=== PATIENT | female | born 1970 | race Caucasian/White ===

== ENCOUNTER → 2023-08-13 08:27 | Outpatient (REF) | payer OTHER, SELFPAY | LOC: EMG 08:27 | PROVIDERS: ATTENDING PHYSICIAN Nurse Practitioner | DX: R20.0 Anesthesia of skin (principal) | CPT/HCPCS: 95886; 95911 ==

== ENCOUNTER → 2023-08-16 07:46 | Outpatient (REF) | payer OTHER, SELFPAY | LOC: EMG 07:46 | PROVIDERS: ATTENDING PHYSICIAN Nurse Practitioner | DX: R20.0 Anesthesia of skin (principal) | CPT/HCPCS: 95886; 95910 ==